=== PATIENT | female | born 2000 | race African-American/Black ===

== ENCOUNTER 2020-08-17 23:12 | Inpatient (IN) | payer OTHER ==
[~2020-08-17] VITALS: Ht 149.9 cm; Wt 54.4 kg
[2020-08-17] MEDS: LACTATED RINGER'S 1,000 ML IV SCH (00:11)
[2020-08-17] MEDS ORDERED: BUTORPHANOL TARTRATE 2 MG/1 ML VIAL IV PRN (23:30)
[2020-08-17] MEDS ORDERED: PROMETHAZINE HCL 25 MG/ML 1ML IM PRN (23:30)
[2020-08-17] MEDS ORDERED: WITCH HAZEL-GLYCERIN PAD TOP PRN (23:30)
[2020-08-17] MEDS ORDERED: DERMOPLAST 60ML BOTTLE TOP PRN (23:30)
[2020-08-17] MEDS ORDERED: LIDOCAINE 2%HCL (LOCAL ANESTH.) INJ 20ML MDV IJ ONE (23:30)
[2020-08-17] MEDS ORDERED: PENICILLIN G POT 5MIL/D5 50ML 50 ML IV ONE (23:30)
[2020-08-17] MEDS ORDERED: PHISODERM TOP SOLN 240ML BTL TOP PRN (23:30)
[2020-08-18] VITALS (8 sets, daily range): BP systolic 96–119; BP diastolic 54–68
[2020-08-18] MEDS ORDERED: PENICILLIN G POT 5MIL/D5 50ML 50 ML IV ONE (00:01)
[2020-08-18] MEDS ORDERED: BUTORPHANOL TARTRATE 2 MG/1 ML VIAL ONE (00:02)
[2020-08-18] MEDS ORDERED: LACT. RINGERS/OXYTOCIN 20UNITS 1,000 ML IV ONE (00:15)
[2020-08-18 00:28] LABS: Mean Corpuscular Hemoglobin 16.7 pg (28.0-32.0); Mean Corpuscular Hgb Conc. 30.1 g/dL (32.0-36.0)
[2020-08-18 00:30] LABS: Hematocrit 21.1 % (36.0-46.0); Mean Corpuscular Volume 55.5 fL (80.0-100.0); Platelet Count (auto) 553 10^3/uL (140-450); White Blood Cell 15.8 10^3/uL (4.4-10.8)
[2020-08-18 00:39] LABS: Red Cell Distribution Width 23.4 % (11.8-14.3)
[2020-08-18 00:40] LABS: Hemoglobin 6.3 g/dL (12.2-16.2)
[2020-08-18 00:42] LABS: Band Neutrophils % (manual) 0; Basophils % (manual) 0 (0.0-2.0); Blast Cells 0; Eosinophils % (manual) 0 (0-7); INR 0.97 (0.9-1.15); Metamyelocytes % 0; Partial Thromboplastin Time 23.1 sec (23.0-31.2); Promyelocytes % 0; Reactive Lymphocytes 0
[2020-08-18 00:44] LABS: Albumin 2.4 g/dL (3.4-5.0); BUN/Creatinine Ratio 9.3; Calcium 8.6 mg/dL (8.5-10.1); Potassium 3.4 mmol/L (3.5-5.1)
[2020-08-18 00:47] LABS: Bilirubin, Total 0.4 mg/dL (0.2-1.0); Total Protein 7.1 g/dL (6.4-8.2)
[2020-08-18 01:11] LABS: Lymphocytes % (manual) 16 (10.0-50.0); Monocytes % (manual) 11 (0-12); Myelocytes % 6
[2020-08-18 01:12] LABS: Uric Acid 4.3 mg/dL (2.6-6.0)
[2020-08-18 01:29] LABS: Urine Bacteria NONE SEEN /hpf (None Seen); Urine Blood 3+ /uL (Negative); Urine Mucus FEW (None Seen); Urine Specific Gravity 1.016 (1.001-1.035); Urine WBC 27 /hpf (0 - 5)
[2020-08-18] MEDS ORDERED: diphenhdrAMINE HCL 50 MG/1 ML VL IM PRN ×2 (01:30→03:45)
[2020-08-18 01:44] LABS: Amphetamine Screen, Urine NEGATIVE (NEGATIVE); Barbiturate Scree,Urine NEGATIVE (NEGATIVE); Cannabinoid Screen, Urine NEGATIVE (NEGATIVE); Cocaine Screen, Urine NEGATIVE (NEGATIVE); Opiate Scree,Urine NEGATIVE (NEGATIVE); Phencyclidine Screen, Urine NEGATIVE (NEGATIVE)
[2020-08-18 01:53] LABS: Benzodiazephine Screen, Urine NEGATIVE (NEGATIVE)
[2020-08-18] MEDS ORDERED: PENICILLIN G POTASSIUM 2,500,000 UNITS in D5W 5% 50 ML IV SCH (03:30)
[2020-08-18] MEDS ORDERED: ACETAMINOPHEN 325 MG TAB PO PRN (03:45)
[2020-08-18] MEDS: IBUPROFEN 600 MG TAB PO PRN ×4 (06:40→20:19)
[2020-08-18] MEDS: LACTATED RINGER'S 1,000 ML IV SCH (09:49)
[2020-08-18] MEDS: FERROUS SULFATE 325 MG TAB PO SCH ×3 (09:52→17:35)
[2020-08-18] MEDS ORDERED: PREN-96 PO (10:13)
[2020-08-18 20:17] LABS: Basophils # (auto) 0.1 10 ^3/uL (0-0.2); Basophils % (auto) 0.4 % (0.0-2.0); Eosinophils # (auto) 0 10 ^3/uL (0-0.8); Hemoglobin 8.3 g/dL (12.2-16.2); Lymphocytes # (auto) 2.6 10 ^3/uL (0.4-5.4); Neutrophils # (auto) 14.1 10 ^3/uL (1.6-8.6)
[2020-08-18 20:19] LABS: Eosinophils % (auto) 0.2 % (0.0-7.0); Hematocrit 25.5 % (36.0-46.0); Lymphocytes % (auto) 14.5 % (10.0-50.0); Mean Corpuscular Hgb Conc. 32.5 g/dL (32.0-36.0); Mean Corpuscular Volume 61.3 fL (80.0-100.0); Monocytes # (auto) 1.1 10 ^3/uL (0-1.3); Monocytes % (auto) 6.4 % (0.0-12.0); Neutrophils % (auto) 78.5 % (37.0-80.0); Nucleated Red Blood Cells % 0.3 %; Platelet Count (auto) 458 10^3/uL (140-450); Red Blood Cells 4.15 10^6/uL (4.0-5.20); White Blood Cell 17.9 10^3/uL (4.4-10.8)
[2020-08-18 20:20] LABS: Red Cell Distribution Width 32.3 % (11.8-14.3)
[2020-08-19 03:30] VITALS: BP 101/62
[2020-08-19 06:10] LABS: RPR Non Reactive (Non Reactive)
[2020-08-19] MEDS: IBUPROFEN 600 MG TAB PO PRN (06:12)
[2020-08-19 07:07] LABS: Rubella Antibodies, IgG 2.13 index (Immune >0.99)
[2020-08-19 07:14] VITALS: BP 111/59
[2020-08-19] MEDS: FERROUS SULFATE 325 MG TAB PO SCH (08:00)
[2020-08-19 10:41] VITALS: BP 104/58
== END 2020-08-19 10:58 | disposition home or self-care (01) | DRG 805 ==
LOC: LDRP 23:12 → OBSVTOIN 23:24 → LDRP 23:25
PROVIDERS: ADMIT Obstetrics & Gynecology; ATTEND Obstetrics & Gynecology
PROC: 10E0XZZ Delivery of Products of Conception, External Approach (ICD-10-PCS; principal; 2020-08-18)
PROC: 30233N1 Transfusion of Nonautologous Red Blood Cells into Peripheral Vein, Percutaneous Approach (ICD-10-PCS; 2020-08-18)
DX: O98.52 Other viral diseases complicating childbirth (principal); U07.1 COVID-19; Z37.0 Single live birth; O99.02 Anemia complicating childbirth; D64.9 Anemia, unspecified; Z3A.38 38 weeks gestation of pregnancy
CPT/HCPCS: 36415; 36430; 59025; 59409; 80053; 80307; 81001; 84550; 85007; 85025; 85027; 85610; 85730; 86592; 86703; 86762; 86850; 86900; 86901; 86920; 87340; 87426; 96360; 96361; 96365; 96366; 96374; G0378; J2540; J2590; J7060